=== PATIENT | male | born 1975 | race Caucasian/White ===

== ENCOUNTER 2016-08-19 13:42 | Emergency (ER) | payer OTHER ==
[~2016-08-19] VITALS: Ht 182.9 cm; Wt 91.4 kg
[2016-08-19 13:48] VITALS: BP 174/120; PULSE 106; RESP 16; TEMP 98.9; O2SAT 98
[2016-08-19 14:56] VITALS: BP 181/106; PULSE 105; RESP 20
[2016-08-19] MEDS ORDERED: LABETALOL HCL 100 MG/20 ML VIAL IV PUSH ONE (15:30)
[2016-08-19] MEDS ORDERED: KETOROLAC TROMETHAMINE 30 MG/ML (IVP) VIAL IV PUSH ONE (15:30)
--- NOTE | 2016-08-19 15:36 | PD ---
HPI Chief Complaint: Hypertension Time Seen by Provider: 15:11 Travel History International Travel<30 days: No Contact w/Intl Traveler<30days: No Traveled to known affect area: No History of Present Illness HPI 41-year-old male complains of headache, chest pain, elevated blood pressure. Patient has history hypertension and went off his medication 5 years ago. Patient was on HCTZ and lisinopril. Patient states that he lost some weight and blood pressure was under control until recently. Patient states that he started having mild aching headache for the past 2 days and substernal chest pressure for the last 2 days also. Patient states that he has aching headache diffuse over the head. Patient denies any visual change. Patient denies any neck pain. Patient denies any chest pain radiation. Patient denies palpitation. Patient denies any nausea or diaphoresis. Patient denies history of headache problem. Patient denies history of CAD. Patient has history hypertension. Patient denies history of diabetes or dyslipidemia. Patient is a nonsmoker. Patient denies family history heart disease. Patient states that he is under lots of stress recently and has been taking [id number] energy drinks. PFSH Past Medical History Diminished Hearing: No Hypertension: Yes Tetanus Vaccination: > 5 Years Influenza Vaccination: No ?: Not Social History Alcohol Use: Yes (daily) Tobacco Use: No Substance Use: No Allergies-Medications (Allergen,Severity, Reaction): Coded Allergies: No Known Allergies (Unverified , 08/19/16) Reported Meds & Prescriptions Reported Meds & Active Scripts Active Lisinopril 20 Mg Tab 20 Mg PO DAILY Atenolol 50 Mg Tab 50 Mg PO BID Review of Systems General / Constitutional: No: Fever Eyes: No: Visual changes HENT: Positive: Headaches Cardiovascular: Positive: Chest Pain or Discomfort Respiratory: No: Shortness of Breath Gastrointestinal: No: Abdominal Pain Genitourinary: No: Dysuria Musculoskeletal: No: Pain Skin: No Rash Neurologic: No: Weakness Psychiatric: No: Depression Endocrine: No: Polydipsia Hematologic/Lymphatic: No: Easy Bruising Physical Exam Narrative GENERAL: Well-nourished, well-developed patient. SKIN: Focused skin assessment warm/dry. HEAD: Normocephalic. EYES: No scleral icterus. No injection or drainage. Pupils 3 mm equal reactive. NECK: Supple, trachea midline. No JVD or lymphadenopathy. CARDIOVASCULAR: Regular rate and rhythm without murmurs, gallops, or rubs. RESPIRATORY: Breath sounds equal bilaterally. No accessory muscle use. GASTROINTESTINAL: Abdomen soft, non-tender, nondistended. MUSCULOSKELETAL: No cyanosis, or edema. BACK: Nontender without obvious deformity. No CVA tenderness. Neurologic exam normal. Data Data Last Documented VS Vital Signs Date Time Temp Pulse Resp B/P Pulse Ox O2 Delivery O2 Flow Rate FiO2 08/19/16 16:44 90 20 157/88 99 08/19/16 15:48 Room Air 08/19/16 13:48 98.9 Orders Electrocardiogram (08/19/16 13:58) Complete Blood Count With Diff (08/19/16 15:19) Comprehensive Metabolic Panel (08/19/16 15:19) Creatine Kinase (Cpk) (08/19/16 15:19) Troponin I (08/19/16 15:19) Prothrombin Time / Inr (Pt) (08/19/16 15:19) Act Partial Throm Time (Ptt) (08/19/16 15:19) Thyroid Stimulating Hormone (08/19/16 15:19) Chest, Single Ap (08/19/16 15:19) Ct Brain W/O Iv Contrast(Rout) (08/19/16 15:19) Iv Access Insert/Monitor (08/19/16 15:19) Ecg Monitoring (08/19/16 15:19) Oximetry (08/19/16 15:19) Drug Screen, Random Urine (08/19/16 15:19) Labetalol Inj (Trandate Inj) (08/19/16 15:30) Ketorolac Inj (Toradol Inj) (08/19/16 15:30) Labs Laboratory Tests Test 08/19/16 08/19/16 15:00 16:16 White Blood Count 7.6 TH/MM3 Red Blood Count 4.65 MIL/MM3 Hemoglobin 14.8 GM/DL Hematocrit 43.6 % Mean Corpuscular Volume 93.8 FL Mean Corpuscular Hemoglobin 31.8 PG Mean Corpuscular Hemoglobin 33.8 % Concent Red Cell Distribution Width 12.3 % Platelet Count 254 TH/MM3 Mean Platelet Volume 8.4 FL Neutrophils (%) (Auto) 70.2 % Lymphocytes (%) (Auto) 22.5 % Monocytes (%) (Auto) 6.4 % Eosinophils (%) (Auto) 0.6 % Basophils (%) (Auto) 0.3 % Neutrophils # (Auto) 5.4 TH/MM3 Lymphocytes # (Auto) 1.7 TH/MM3 Monocytes # (Auto) 0.5 TH/MM3 Eosinophils # (Auto) 0.0 TH/MM3 Basophils # (Auto) 0.0 TH/MM3 CBC Comment DIFF FINAL Differential Comment Urine Opiates Screen NEG Urine Barbiturates Screen NEG Urine Amphetamines Screen NEG Urine Benzodiazepines Screen NEG Urine Cocaine Screen NEG Urine Cannabinoids Screen NEG Prothrombin Time 10.7 SEC Prothromb Time International 1.0 RATIO Ratio Activated Partial 27.3 SEC Thromboplast Time Sodium Level 138 MEQ/L Potassium Level 3.3 MEQ/L Chloride Level 102 MEQ/L Carbon Dioxide Level 28.4 MEQ/L Anion Gap 8 MEQ/L Blood Urea Nitrogen 10 MG/DL Creatinine 0.86 MG/DL Estimat Glomerular Filtration 97 ML/MIN Rate Random Glucose 108 MG/DL Calcium Level 8.5 MG/DL Total Bilirubin 0.7 MG/DL Aspartate Amino Transf 52 U/L (AST/SGOT) Alanine Aminotransferase 87 U/L (ALT/SGPT) Alkaline Phosphatase 74 U/L Total Creatine Kinase 142 U/L Troponin I LESS THAN 0.02 NG/ML Total Protein 7.1 GM/DL Albumin 3.6 GM/DL Thyroid Stimulating Hormone 0.721 uIU/ML [address] [place] [address] Medical Decision Making Medical Screen Exam Complete: Yes Emergency Medical Condition: Yes Interpretation(s) 1536 PM. EKG shows sinus tachycardia with rate 103. Nonspecific ST-T wave change. Urine drug screen negative. Cardiac enzymes are normal. Differential Diagnosis Differential diagnosis including cephalgia, musculoskeletal, angina, WI, PE, pneumothorax, uncontrolled hypertension, hypertensive urgency, hypertensive crisis. Narrative Course 41-year-old male with headache, chest discomfort, elevated blood pressure. History hypertension and went off medications 5 years ago. Labetalol 10 mg IV given. Diagnosis Primary Impression: Hypertensive urgency Additional Impressions: Cephalgia Qualified Code: R51 - Acute nonintractable headache, unspecified headache type Atypical chest pain Patient Instructions: General Instructions Additional Instructions: Take atenolol or lisinopril as directed for blood pressure. Follow-up with personal physician. Return immediately if increasing headache, increasing chest pain shortness of breath, unable to control hypertension. Med/Other Pt SpecificInfo: Prescription(s) given Scripts Lisinopril 20 Mg Tab20 Mg PO DAILY #30 TAB Ref 0 Prov:Jose F Matamoros MD 08/19/16 Atenolol 50 Mg Tab50 Mg PO BID #60 TAB Ref 0 Prov:Jose F Matamoros MD 08/19/16 Disposition: 01 DISCHARGE HOME Condition: Stable Jose F Matamoros MD Aug 19, 2016 15:36
[2016-08-19 15:46] LABS: AUTOMATED NEUTROPHIL # 5.4 TH/MM3 (1.8-7.7); BASOPHIL % 0.3 % (0.0-2.0); EOSINOPHIL % 0.6 % (0.0-4.0); HEMATOCRIT 43.6 % (39.0-51.0); HEMO FLAGS DIFF FINAL; LYMPH % 22.5 % (9.0-44.0); LYMPHOCYTE # 1.7 TH/MM3 (1.0-4.8); MEAN CELL VOLUME 93.8 FL (80.0-100.0); MEAN CORPUSCULAR HEMOGLOBIN 31.8 PG (27.0-34.0); MEAN CORPUSCULAR HGB CONC 33.8 % (32.0-36.0); MONO % 6.4 % (0.0-8.0); NEUT % 70.2 % (16.0-70.0); PLATELET COUNT 254 TH/MM3 (150-450); RED BLOOD COUNT 4.65 MIL/MM3 (4.50-5.90); RED CELL DISTRIBUTION WIDTH 12.3 % (11.6-17.2); WHITE BLOOD COUNT 7.6 TH/MM3 (4.0-11.0)
[2016-08-19 15:47] VITALS: BP 161/96; PULSE 90; RESP 16; O2SAT 97
[2016-08-19 15:48] VITALS: RESP 16; O2SAT 97
--- NOTE | 2016-08-19 15:51 | RADHPO ---
EXAM DATE/TIME: 08/19/2016 15:28 [facility] COMPARISON: No previous studies available for comparison. INDICATIONS : High blood pressure and headache. MEDICAL HISTORY : None. SURGICAL HISTORY : None. ENCOUNTER: Initial ACUITY: 1 day PAIN SCORE: 2/10 LOCATION: Bilateral chest FINDINGS: A single view of the chest demonstrates the lungs to be symmetrically aerated without evidence of mas s, infiltrate or effusion. The cardiomediastinal contours are unremarkable. Osseous structures are intact. CONCLUSION: Normal examination. Jack Jaime Jr., MD on August 19, 2016 at 15:50 Board Certified Radiologist. This report was verified electronically.
[2016-08-19 15:53] LABS: AMPHETAMINE, URINE NEG (NEG); BARBITURATES, URINE NEG (NEG); COCAINE, URINE NEG (NEG)
--- NOTE | 2016-08-19 16:07 | RADHPO ---
EXAM DATE/TIME: 08/19/2016 15:49 [facility] COMPARISON: No previous studies available for comparison. INDICATIONS : Cephalgia. High blood pressure. RADIATION DOSE: 62.54 CTDIvol (mGy) MEDICAL HISTORY : Hypertension. SURGICAL HISTORY : None. ENCOUNTER: Initial ACUITY: 2 days PAIN SCALE: 5/10 LOCATION: cranial TECHNIQUE: Multiple contiguous axial images were obtained of the head. Using automated exposure control and adj ustment of the mA and/or kV according to patient size, radiation dose was kept as low as reasonably a chievable to obtain optimal diagnostic quality images. FINDINGS: CEREBRUM: The ventricles are normal for age. No evidence of midline shift, mass lesion, hemorrhage or acute in farction. No extra-axial fluid collections are seen. POSTERIOR FOSSA: The cerebellum and brainstem are intact. The 4th ventricle is midline. The cerebellopontine angle i s unremarkable. EXTRACRANIAL: Mild left maxillary sinus mucosal thickening. SKULL: The calvaria is intact. No evidence of skull fracture. CONCLUSION: 1. No acute intracranial findings. 2. Mild left maxillary sinus mucosal thickening. Ismael Walters MD on August 19, 2016 at 16:02 Board Certified Radiologist. This report was verified electronically.
[2016-08-19] MEDS ORDERED: ATEN50TA PO (16:09)
[2016-08-19] MEDS ORDERED: LISI-515 PO (16:09)
[2016-08-19 16:10] VITALS: BP 156/98; PULSE 96
[2016-08-19 16:30] LABS: CHLORIDE 102 MEQ/L (98-107); POTASSIUM 3.3 MEQ/L (3.5-5.1); SODIUM (NA) 138 MEQ/L (136-145)
[2016-08-19 16:34] LABS: ANION GAP 8 MEQ/L (5-15); BICARBONATE 28.4 MEQ/L (21.0-32.0); BLOOD UREA NITROGEN 10 MG/DL (7-18)
[2016-08-19 16:36] LABS: APTT (PATIENT) 27.3 SEC (24.3-30.1); PROTHROMBIN TIME - PATIENT 10.7 SEC (9.8-11.6)
[2016-08-19 16:37] LABS: ALT (GPT) 87 U/L (12-78); AST (GOT) 52 U/L (15-37)
[2016-08-19 16:38] LABS: GLOMERULAR FILTRATION RATE 97 ML/MIN (>89)
[2016-08-19 16:39] LABS: TOTAL BILIRUBIN ADULT 0.7 MG/DL (0.2-1.0)
[2016-08-19 16:40] LABS: ALKALINE PHOSPHATASE 74 U/L (45-117); CREATINE KINASE 142 U/L (39-308)
[2016-08-19 16:44] VITALS: BP 157/88; PULSE 90; RESP 20; O2SAT 99
--- NOTE | 2016-08-20 16:25 | EKG ---
Date Performed: 08/19/2016 Time Performed: 13:58:48 PTAGE: 41 years EKG: Sinus tachycardia Normal ECG except for rate NO PREVIOUS TRACING DOCTOR: Renzo Gomez Interpretating Date/Time 08/20/2016 16:22:00
== END 2016-08-19 17:22 | disposition home or self-care (01) ==
LOC: PHED 13:42
DX: I16.0 Hypertensive urgency (principal); R51 Headache; R07.89 Other chest pain; Z79.899 Other long term (current) drug therapy
CPT/HCPCS: 70450; 71010; 80053; 80307; 82550; 84443; 84484; 85025; 85610; 85730; 93005; 96374; 96375; 99285; J1885